=== PATIENT | male | born 1945 | race Caucasian/White ===

== ENCOUNTER 2023-01-10 10:21 | Inpatient (IN) | payer MEDICARE, OTHER, SELFPAY ==
[2023-01-04 08:37] VITALS: BMI 34.4
[2023-01-10] VITALS (14 sets, daily range): BP systolic 115–152; BP diastolic 45–75; PULSE 61–80; RESP 12–23; TEMP 35.8–36.3; O2SAT 90–97; BMI 34.4
[2023-01-10] MEDS: LACTATED RINGERS 1,000 ML 84 ML IV (11:05)
--- NOTE | 2023-01-10 12:06 | PM.PREOP ---
Pre-operative Note COVID-19 Criteria for continued procedure: Expected advancement of disease process, Possibility delay results in more complex future surgery or treatment, Increased loss of function, Continuing or worsening of significant or severe pain, Deterioration of the patient's condition or overall health and Delay expected to result in less-positive ultimate med/surg outcome Interval Note History & Physical reviewed/Exam performed by Physician: Yes Changes to H&P: No
[2023-01-10] MEDS: CEFAZOLIN 2 GM/100 ML PREMIX 100 ML IV ×2 (12:55→20:11)
--- NOTE | 2023-01-10 13:10 | SUR.OPER ---
Supine, head on gel donut. Arms padded with gel pads, tucked at sides, towel roll under shoulders. Safety belt at thigh. Legs uncrossed.
[2023-01-10] MEDS: BUPIVACAINE 0.25% (PF) 30 ML, EPINEPHrine 0.15 MG INJ (13:14)
--- NOTE | 2023-01-10 14:55 | PM.OP.1 ---
Operative Date/Time/Diagnoses Date of procedure: 01/10/23 Time of procedure: 12:00 Pre-op diagnosis: 1. C3-4, C4-5 spinal stenosis 2. 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 C3-4, C4-5 anterior cervical diskectomy and fusion 2. C3-4, C4-5 anterior interbody cage placement 3. C3-4, C4-5 anterior instrumentation with plate and screw placement in C5-C6 and C7 vertebrae 4. Utilization of microsurgical technique and operating microscope Same procedure as scheduled: Yes Indications: Patient has been having chronic neck pain and worsening cervical radiculopathy and myelopathy. Patient failed multiple conservative management with worsening pain weakness and numbness in his upper extremity. Patient has been having difficulty performing activity of daily living. After discussing risks benefits of treatment options, patient elected proceed with surgery. Surgeon: Dania Casey Emblem Drawer In: Joyce Chacko Click Yes if Unassisted: No Anesthesia Type: General Operative Notes Closure Type: primary Specimen(s): none sent Prosthetic devices, grafts, tissues, transplants, or devices: Globus Extend Plate, Hedron C cages Estimated Blood Loss (mL): 5 Blood products transfused: none Procedure in detail: Patient was seen in the preoperative area. Risks and benefits of the surgery was discussed with the patient. Operative consent was obtained and placed in the chart. Patient was then taken to the operative room. Prophylactic antibiotic was given less than 0.5 hr prior to skin incision. General anesthesia was administered. Patient was placed into a supine position on her radiolucent table. Bilateral shoulders were taped down to allow proper C-arm imaging. Anterior cervical area was prepped and draped in a sterile fashion. Time-out was performed at this time. Using lateral C-arm imaging, the level between C3 and C5 was identified and marked on patient's neck. A oblique incision from midline towards medial border of sternocleidomastoid muscle was made. The platysma muscle was incised in line with skin incision. Metzenbaum scissor was used to develop the plane between the medial border of sternocleidomastoid d and the strap muscles medially. The carotid sheath and its contents were identified and protected behind the hand-held retractor during the entire case. The plane between the carotid sheath and strap muscles was developed with Metzenbaum scissors. Dissection was made down to the level of the anterior cervical fascia. Longus colli muscle was incised on the anterior aspect of vertebral bodies bilaterally from C3-5. Spinal needle was placed into the C4-5 disc space and confirmed with lateral C-arm imaging. Using microsurgical technique and operative microscope, anterior cervical diskectomy was performed at C3-4, C4-5 level. This was done by removing the disc material, removing the anterior and posterior osteophytes posterior longitudinal ligaments along with performing bilateral foraminotomies at both levels. Patient was found to have severe central and foraminal stenosis at both levels. Patient's stenosis was fully decompressed after decompression was completed. After the diskectomy was completed, 2 anterior interbody cages were obtained. The cages were packed with DBM bone grafting material. One cage each along with the bone grafting material was then packed into the interbody spaces fromC3-4, C4-5 with one cage into each interbody level. After the cages were placed, the anterior cervical plate was stabilized to the C4-6 vertebrae using 2 screws at each each level. Total 6 screws were placed. After confirming placement of the hardware with AP and lateral C-arm imaging, the screws were locked into the plate using the locking mechanism and torque limiting screwdriver. After the hardware was placed and confirmed with AP and lateral C-arm imaging, the wound was irrigated with sterile normal saline. The platysma muscle and the subcutaneous tissue was closed with 2-0 Vicryl. The skin was closed with 4-0 Monocryl and Steri-Strips. Patient tolerated the procedure well. Patient was transferred recovery room in stable condition. There were no complications. The Operation could not have been safely performed without compromising the technical result or length of the procedure, without the assistance of a skilled director medical surgical. The director medical surgical was medically necessary for proper positioning, retraction and manipulation of instruments, proper exposure, surgical preparation, and manipulation of tissue. Complications: none Post-operative Condition: stable Disposition: PACU Plan for aftercare: Admit to inpatient hospital
--- NOTE | 2023-01-10 15:01 | DI.RAD.S_ITS ---
PROCEDURE: XR CERVICAL SPINE 2V OR 3V INDICATIONS: c3-4, c4-5 acdf TECHNIQUE: 2 low resolution fluoroscopic spot films were obtained intraoperatively COMPARISON: None. FINDINGS: Fluoroscopic intraoperative spot films show C3-4 and C4-5 anterior cervical discectomy and fusion with anterior plate and screw hardware in good position IMPRESSION: Fluoroscopic guidance Approved by: Frank Staley M.D. on 01/10/2023 at 15:03
[2023-01-10] MEDS: HYDROCODONE/ACET 5/325 TABLET 1 TAB PO (15:25)
[2023-01-10] MEDS: hydrOXYzine 50 MG/ML INJ 25 MG IM (15:25)
--- NOTE | 2023-01-10 15:30 | SUR.PHASEI ---
attempted to call report to floor
--- NOTE | 2023-01-10 16:03 | PC.NURSE ---
Assess-Patient is alert and oriented x4. He had a C3-C4 C4-C5 ACDF. Dressing to anterior cervical neck with 4x4 and tegaderm. Patient was given Vicodin, and vistaril down in PACU. He is resting now. Patient has a loud heart murmur present and he states that he has had this since he was a child. He is a diet controlled diabetic and his blood sugar down in pacu was 127. He is lying supine and denies pain at this time. Resting comfortably, he will have ivf and he is tolerating his scds.
[2023-01-10] MEDS: ACETAMINOPHEN 325 MG TABLET 650 MG PO (16:33)
[2023-01-10] MEDS: OXYCODONE IR 5 MG TABLET PO ×3 (16:34→20:11)
[2023-01-10] MEDS: LACTATED RINGERS 1,000 ML 125 ML IV (16:36)
[2023-01-10] MEDS: hydrOXYzine pamoate 25 MG CAPSULE PO (19:54)
[2023-01-10] MEDS: lisinopriL 20 MG TABLET 40 MG PO (20:09)
[2023-01-10] MEDS: ATORVASTATIN 20 MG TABLET 10 MG PO (20:10)
[2023-01-10] MEDS: EZETIMIBE 10 MG TABLET PO (20:10)
[2023-01-10] MEDS: SENNOSIDES 8.6 MG TABLET 17.2 MG PO (20:10)
[2023-01-10] MEDS: DOCUSATE 100 MG CAPSULE PO (20:11)
[2023-01-10] MEDS: BENZOCAINE/MENTHOL 1 LOZ PKT 1 EACH PO (20:24)
[2023-01-10] MEDS: HYDROMORPHONE 0.5 MG INJ IV (21:40)
[2023-01-11] MEDS: OXYCODONE IR 10 MG TABLET PO ×5 (00:11→17:09)
[2023-01-11] MEDS: LACTATED RINGERS 1,000 ML 125 ML IV ×3 (00:59→19:38)
[2023-01-11 03:37] VITALS: BP 143/79; PULSE 76; RESP 18; TEMP 35.9; O2SAT 92
[2023-01-11] MEDS: CEFAZOLIN 2 GM/100 ML PREMIX 100 ML IV (05:46)
[2023-01-11] MEDS: PANTOPRAZOLE DR 20 MG TABLET PO (05:46)
[2023-01-11] MEDS: glipiZIDE 5 MG TABLET 10 MG PO ×2 (06:43→16:44)
--- NOTE | 2023-01-11 07:33 | PM.PNPO.1 ---
Subjective Subjective Date Patient Seen: 01/11/23 Time Patient Seen: 07:33 Interval history: Patient's pain has been moderate. Denies fever or chills. No nausea or vomiting. Patient states his throat is sore but is not having difficulty swallowing or breathing. Exam Vital Signs (past 8 hours): - 01/11/23 03:37 Temperature 96.7 F L Pulse Rate 76 Respiratory Rate 18 Blood Pressure 143/79 H Pulse Oximetry 92 Oxygen Flow Rate 0 Oxygen Delivery Method Room Air Oxygen Flow Rate 0 Narrative Exam Narrative: 77-year-old male resting comfortably in bed in no apparent distress. Motor functions intact bilateral upper extremities. Sensation grossly intact to light touch bilateral upper extremities. Soft collar in place. 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) History of transurethral resection of prostate Hx of arthroscopy of right knee Hx of bilateral cataract extraction Hx of cholecystectomy S/P Botox injection Social History household members: spouse Smoking Status: Former smoker alcohol intake: current Assessment & Plan Post-op Postoperative Procedures: Procedures Operation Date: 01/10/23 12:15 Actual Procedure Side Surgeon p C3-4, C4-5 ACDF w/ anterior instrumentation Dania Casey MD Postoperative day: 1 Postoperative status: doing well and marginal pain control Postoperative status narrative: Status post cervical fusion progressing as expected Postoperative plan: routine post-op care Postoperative plan narrative: Multimodal pain management Soft collar for comfort Mobilize with physical therapy, limit bending, twisting, lifting Disposition likely this afternoon. Quality VTE Deep Vein Thrombosis/Pulmonary Embolism Present on Admission: No
[2023-01-11 08:00] VITALS: BP 132/75; PULSE 76; RESP 18; TEMP 36.8; O2SAT 92
[2023-01-11] MEDS: METOPROLOL ER 50 MG TABLET PO (08:50)
[2023-01-11] MEDS: DOCUSATE 100 MG CAPSULE PO ×2 (08:50→21:16)
[2023-01-11] MEDS: AMLODIPINE 5 MG TABLET PO (08:50)
--- NOTE | 2023-01-11 09:10 | PC.NURSE ---
Addendum entered by Tanya Coleman R.N. 01/11/23 15:15: Patient unable to void on his own. He was just in/out cathed and had 600cc of yellow urine out. He has been started on tamulosin 0.4mg daily. Addendum entered by Tanya Coleman R.N. 01/11/23 14:52: Patient is unable to void after trying to use the bathroom. We will in/out cath him and start patient on flomax 0.4mg po daily. Addendum entered by Tanya Coleman R.N. 01/11/23 11:14: Patient up with physical therapy and complained of feeling slightly dizzy. His VS are stable, his orthostatics were done and did drop a small amount. To give pain medications now and put up a new liter of ivf as patient is not drinking or eating much. Original Note: Patients incision to anterior neck is cdi with ss, 4x4s and tegaderm intact. He is able to swallow if he goes slow. Throat sounds irritated. JAIDEN Tee is aware of this. Patient complains of being dizzy this morning. Blood Pressure is wnl and po medications given. He was able to swallow these without any difficulty. Back to bed now to rest, ivf continues to infuse. If patient is unable to void in a couple of hours,we will in/out cath him and start patient on flomax per JAIDEN Dasilva.
--- NOTE | 2023-01-11 09:25 | OT.IP.EVAL ---
Current Diagnoses Other spondylosis with myelopathy, cervical region (01/10/23) Spinal stenosis, cervical region (01/10/23) Surgery Performed Operation Date: 01/10/23 12:15 Actual Procedures p C3-4, C4-5 ACDF w/ anterior instrumentation - Dania Casey MD Past Medical History (Last Reviewed 01/11/23 @ 07:34 by Trevor Dasilva PA-C) Aortic stenosis ASHD (arteriosclerotic heart disease) Diabetes Dry eyes Enlarged prostate GERD (gastroesophageal reflux disease) Hearing impaired Heart murmur History of dyspnea HLD (hyperlipidemia) HTN (hypertension) Numbness and tingling in both hands TOBI on CPAP Spinal stenosis of cervical region Surgical History (Last Reviewed 01/11/23 @ 07:34 by Trevor Dasilva PA-C) H/O vasectomy History of surgery History of surgery 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) History of transurethral resection of prostate Hx of arthroscopy of right knee Hx of bilateral cataract extraction Hx of cholecystectomy S/P Botox injection Occupational Therapy Inpatient Evaluation/Re-Eval M1 PT/OT-IP Prior Functional Status Start: 01/11/23 09:08 Freq: NEEDED Status: Active Protocol: Document 01/11/23 08:42 [facility] (Rec: 01/11/23 09:34 [facility] [id number]) Medical Review Prior Functional Status Communication independent Mobility and Gait independent Activities of Daily Living and IADL's independent Social History Household Members spouse Living Arrangements House Number of Floors (Floors) Two Floors Number of Stairs To Enter/Railing? 4 steps with right rail to enter form the garage Home Environment Standard Height Toilet,Walk in Shower Home Equipment Front Wheel Walker,Straight Cane,Shower Seat with Backrest Additional Social History Comment built in shower seat M2 OT-IP Current Condition Start: 01/11/23 09:08 Freq: Status: Active Protocol: Document 01/11/23 08:42 [facility] (Rec: 01/11/23 09:34 [facility] [id number]) Occupational Therapy Current Condition Current Condition Evaluation Date 01/11/23 Treatment Diagnosis S/P C3-4, C4-5 ACDF Diagnosis Onset Date 01/10/23 Post Operative Precautions Cervical Spine Precautions Soft Collar for Comfort,Soft Collar at all Times,No Heavy Lifting,Log Roll M3 OT- IP Subjective and Pain Start: 01/11/23 09:08 Freq: Status: Active Protocol: Document 01/11/23 08:42 [facility] (Rec: 01/11/23 09:34 [facility] [id number]) OT- Subjective Occupational Therapy Visit Type Type Initial Evaluation Visit Start Time 08:42 Visit Stop Time 09:25 Total Visit Minutes 43 Occupational Therapy Visit Comments Patient Comments Pt agreed to get up for OT eval. Patient/Caregiver Goals TO go home. OT Pain Assessment Pain When Pain Assessed At Rest Pain Present Pain Present Pain Reported Location neck Intensity 3 Scale Used Numeric (0 - 10) M4 OT- IP ADL's Start: 01/11/23 09:08 Freq: Status: Active Protocol: Document 01/11/23 08:42 [facility] (Rec: 01/11/23 09:34 [facility] [id number]) OT CQO-Uumo-Hlztffw General Evaluation Self-Feeding Ability Standby Assistance Areas Needing Assistance Opening Containers Comments OT Self-Feeding Comments Noted pt coughing a lot of liquids and needing cues to take smaller sips and try to keep his chin tucked when swallowing. Pt would benefit from OIL RIG DRILLER for further education of needs for swallowing after ACDF sx. Nursing aware of pt' s coughing and difficulty eating/swallowing at this time . OT ADL-Grooming Comments OT Grooming Comments Not performed. OT ADL-Oral Care Comments Oral Care Comments Educated best to sip into a cup to best follow his cervical precautions. OT ADL-Dressing General Eval Lower Body Dressing Ability Standby Assistance Comments OT Dressing Comments Pt able to comfortably cross his legs for LB dressing needs . Pt able to patricia/doff the soft collar on his own with cues for initial orientation of the collar direction. OT ADL-Toileting Comments OT Toileting Comments Pt not having to go. Per nursing may have to be cathed if not able to use the bathroom soon. OT ADL-Bathing Comments OT Bathing Comments NO performed. M5 OT- IP IADL's Start: 01/11/23 09:08 Freq: Status: Active Protocol: Document 01/11/23 08:42 [facility] (Rec: 01/11/23 09:34 [facility] [id number]) OT-Instrumental Activities of Daily Living Deficits IADL Deficits Identified Deficits Home Safety Awareness Awareness of Need for Assistance at Home Good Awareness Ability to Problem Solve Emergency Able to Problem Solve Situations Home Safety Comments Pt has a supportive to assist with his needs. M6 OT- IP Functional Cognition Start: 01/11/23 09:08 Freq: Status: Active Protocol: Document 01/11/23 08:42 [facility] (Rec: 01/11/23 09:34 [facility] [id number]) Cognitive Factors Limiting Selfcare Function Cognitive Ability Level of Alertness Alert Patient Orientation Name,Place,Situation Attention Span Ability Capable of Focused Attention, Capable of Sustained Attention Ability to Follow Commands Able to Follow One Step Commands Safety Awareness Decreased Ability to Apply Precautions Cognitive Comments Cognitive Assessment Comments Cues to follow log rolling for bed mobility needs. Pt able to follow commands for ADl and mobility needs. OT- Vision and Hearing OT- Hearing Assessment OT- Hearing Assessment WFL OT- Vision Assessment Visual Acuity Glasses All The Time M7 OT- IP Mobility and Balance Start: 01/11/23 09:08 Freq: Status: Active Protocol: Document 01/11/23 08:42 [facility] (Rec: 01/11/23 09:34 [facility] [id number]) OT- Bed Mobility Assessment Supine to Sit Supine to Sit Assist Contact Guard Assistance Sit to Supine Sit to Supine Assist Minimal Assistance OT-Transfer Assessment Sit to and From Stand Sit to and from Stand Contact Guard Assistance Transfers Transfer Ability Contact Guard Assistance, Minimal Assistance Technique Transfer Destination Bed,Chair Transfer Technique Stand Step Pivot Devices Transfer Assistive Devices Gait Belt,Front Wheeled Walker Comments Mobility Comments Pt feeling light headed BP supine 127/63, sitting 134/74 and standing 126/91 O2 on RA from 88-94%. Pt needing CGA to help get his trunk upright and assist for his legs back into bed with XOCHILT. Pt needing cues to stay sidelying and not to twist when getting back to bed. CGA/XOCHILT as pt a littl unsteady on his feet due to not feeling well. OT- Balance Assessment Sitting Balance and Reactions Static Sitting Balance Ability Good Dynamic Sitting Balance Ability Good Standing Balance and Reactions Static Standing Balance Ability Fair Dynamic Standing Balance Ability Fair M8 OT- IP Objective Assessments Start: 01/11/23 09:08 Freq: Status: Active Protocol: Document 01/11/23 08:42 [facility] (Rec: 01/11/23 09:34 [facility] [id number]) OT-Muscle Tone Assessment Muscle Tone WNL Yes M9 OT- IP Assessment and Plan Start: 01/11/23 09:08 Freq: Status: Active Protocol: Document 01/11/23 08:42 [facility] (Rec: 01/11/23 09:34 [facility] [id number]) OT Summary Assessment and Plan Potential Rehabilitation Potential Good Analytic Complexity at Evaluation Low Summary OT Impairments Pain,Balance,Coordination, Functional Mobility,Dressing, Toileting,Bathing,Toilet Transfers,Shower Transfers Progress Towards Goals Slow Progress due to Pain,Slow Progress due to Medical Issues,Slow Progress due to Activity Tolerance Assessment Summary Pt low complexity with main barriers being steps, having difficulty swallowing after ACDF sx, and a little unsteady on his feet and complaining of being light headed- Pt would benefit from OIL RIG DRILLER eval due to increased coughing with liquids at this time,to notify pt's nurse. Pt looking to go home with assist when medically stable. Goals Self-Feeding Goal Independent Grooming Goal Independent Dressing Goal Independent Toileting Goal Independent Bathing Goal Independent Toilet Transfer Goal Independent Shower Transfer Goal Independent Days to Meet Goals 5 Frequency of Treatment Frequency Of Treatment Once a Day Treatment Plan OT Treatment Plan ADL Training,Functional Mobility,Patient/Family Education,Discharge Planning Other Treatment Recommendations and Next LB dressing needs Treatment Focus Discharge Recommendations OT Discharge Recommendations Home with Assistance Transportation Needs at Discharge Private Vehicle
--- NOTE | 2023-01-11 10:10 | PT.IIE ---
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) History of transurethral resection of prostate Hx of arthroscopy of right knee Hx of bilateral cataract extraction Hx of cholecystectomy S/P Botox injection Medical History (Last Reviewed 01/11/23 @ 07:34 by Trevor Dasilva PA-C) Aortic stenosis ASHD (arteriosclerotic heart disease) Diabetes Dry eyes Enlarged prostate GERD (gastroesophageal reflux disease) Hearing impaired Heart murmur History of dyspnea HLD (hyperlipidemia) HTN (hypertension) Numbness and tingling in both hands TOBI on CPAP Spinal stenosis of cervical region Physical Therapy Inpatient Evaluation/Re-Eval M1 PT/OT-IP Prior Functional Status Start: 01/11/23 11:48 Freq: NEEDED Status: Active Protocol: Document 01/11/23 10:10 AB (Rec: 01/11/23 12:09 AB [id number]) Medical Review Prior Functional Status Medical History Reviewed Yes Communication able to make needs known Mobility and Gait pt stated that he is independent with all mobilities and ambulation without AD Social History Household Members spouse Living Arrangements House Number of Floors (Floors) Two Floors Number of Stairs To Enter/Railing? 4 steps with R rail ascendingto enter the house has 15 steps with R rail ascending to get to 2nd level bedroom Home Environment Standard Height Toilet,Walk in Shower,Tub/Shower Home Equipment Front Wheel Walker,Straight Cane,Shower Seat with Backrest Additional Social History Comment pt has an adjustable bed M2 PT-IP Current Condition Start: 01/11/23 11:48 Freq: NEEDED Status: Active Protocol: Document 01/11/23 10:10 AB (Rec: 01/11/23 12:09 AB [id number]) Physical Therapy Current Condition Current Condition Evaluation Date 01/11/23 Treatment Diagnosis s/p C3-4, C4-5 ACDF; difficulty in walking Onset Date 01/10/23 M3 PT-IP Subjective Start: 01/11/23 11:48 Freq: NEEDED Status: Active Protocol: Document 01/11/23 10:10 AB (Rec: 01/11/23 12:09 AB [id number]) Subjective Physical Therapy Visit Type Type Initial Evaluation Visit Start Time 10:10 Visit Stop Time 10:45 Total Visit Minutes 35 Number of HUSBANDRY TECHNICIAN Visits 0 Physical Therapy Visit Comments Patient Comments pt is agreeable to do PT Therapy Pain Assessment Pain When Pain Assessed At Rest Pain Present Pain Present Pain Reported Location neck Intensity 2 Scale Used Numeric (0 - 10) Pain Management Techniques Distraction,Modification of Treatment,Re-positioning, Timing of Activity with Medications M4 PT-IP Mobility and Gait Start: 01/11/23 11:48 Freq: NEEDED Status: Active Protocol: Document 01/11/23 10:10 AB (Rec: 01/11/23 12:09 AB [id number]) PT-Bed Mobility Assessment Rolling Type of Rolling Log Rolling Level of Assist Standby Assistance Supine to Sit Supine to Sit Standby Assistance Sit to Supine Sit to Supine Standby Assistance PT-Transfer Assessment Sit to and From Stand Sit to and from Stand Contact Guard Assistance,1 Person Assistance,Use of Upper Extremities Equipment Transfer Assistive Device Gait Belt,Front Wheeled Walker Orthotic/Prosthetic Devices or Brace: No Comments Mobility Comments pt supine in bed. BP checked: 133/55 . Reviewed cervical precautions and log roll bed mobility with pt. pt completed log roll supine to sit SBA but needs cues for techniques. c/o initial dizziness but dissipated after a few mintues of sitting. BP in sittin/59. O2 sat 87%. cued for deep breathing. O2 increased to 92% after 10 sec. pt at . completed sit to stand CGA. c/o dizziness. BP in standin/55. instructed to sit back down. BP checked: 128/61 . O2 sat 88%. cued for deep breathing and increased to 94% . completed sit to stand again and ambulated ~ 8 ft min A using FWW but with c/o dizziness and needed to sit down. BP cchecked: 130/65. O2 sat: 88-89%. completed log roll sit to supine SBA but cues provided for techniques. positiioned pt in bed. call light and table placed within reach. pt stated that he has not been able to eat or drink due to his sore throat. provided pt with ice chips. informed nurse regarding pt's dizziness, orthostatic hypotension and decrease O2 sat. Gait Assessment Gait Gait Assistance Required: Minimum Assistance,1 Person Assist Distance (Feet) 8 Able to Maintain Weight Bearing Status Yes During Gait Assistive Devices Assistive Device Gait Belt,Front Wheeled Walker Orthotic/Prosthetic Devices or Brace: No Gait Deviations General Gait Pattern Step-to Gait Factors Limiting Gait Function Factors Limiting Gait Function Decreased Activity Tolerance, Decreased Sensation,Decreased Strength,Limited Range of Motion,Pain,Poor Balance,Poor Safety Awareness,Respiratory Distress PT-Balance Assessment Sitting Balance and Reactions Static Sitting Balance Ability Good Dynamic Sitting Balance Ability Good Standing Balance and Reactions Static Standing Balance Ability Fair Dynamic Standing Balance Ability Fair Device Used FWW M5 PT-IP Objective Assessments Start: 01/11/23 11:48 Freq: NEEDED Status: Active Protocol: Document 01/11/23 10:10 AB (Rec: 01/11/23 12:09 AB [id number]) Orientation Orientation/Cognition Level of Alertness Alert Orientation Name,Place,Situation Language Function Ability No Deficits Noted Safety Awareness Decreased Safety Awareness Memory Description No Deficits Noted Gross Range of Motion Lower Extremity ROM Assessment Within Functional Limits Strength Lower Extremity Strength Assessment Within Functional Limits Sensation Assessment Sensation Gross Sensation WNL Muscle Tone Muscle Tone WNL Yes M6 PT-IP Treatment Start: 01/11/23 11:48 Freq: NEEDED Status: Active Protocol: Document 01/11/23 10:10 AB (Rec: 01/11/23 12:09 AB [id number]) Physical Therapy Treatment Education Education Provided Precautions,Weight Bearing Status,Safety M7 PT-IP Assessment and Plan Start: 01/11/23 11:48 Freq: NEEDED Status: Active Protocol: Document 01/11/23 10:10 AB (Rec: 01/11/23 12:09 AB [id number]) PT Summary Assessment and Plan Potential Rehabilitation Potential Fair Status of Condition at Evaluation Evolving Summary Impairments Pain,ROM,Strength,Balance, Coordination,Sensation,Tone, Cognition,Bed Mobility, Transfers,Gait,Activity Tolerance Assessment Summary Pt s/p C3-4, C4-5 ACDF POD1. pt requiring min A for ambulation using fWW and only able to walk ~ 8 ft at this time due to c/o dizziness and pt presenting with orthostatic hypotension from 133/55 in supine to 110/55 in standing and decrease O2 sat to 87% with actvity. will continue to assess progress and will conduct caregiver training when appropriate. pt needs to be more mobile than current level to be able to safely go home and also needs to complete stair climbing training prior to d/c. Goals Bed Mobility Goal Independent Transfer Goal Independent,Front Wheeled Walker Gait Goal Independent,Front Wheel Walker Gait Distance 200 Other Goals improve tansfers and ambulation without AD ~ 350 ft up/down 15 steps R rail ascending SBA Days to Meet Goals 5 Frequency of Treatment Frequency Of Treatment Twice a Day Treatment Plan Physical Therapy Treatment Plan Bed Mobility Training,Transfer Training,Gait Training, Therapeutic Exercise,Balance Retraining,Post Op Education, Discharge Planning,Hot or Cold Pack,Neuromuscular Re-ed, Coordination Retraining,Manual Therapy Precautions Cervical Spine Precautions Soft Collar for Comfort,No Heavy Lifting,Log Roll Recommendations To Nursing Amount of Assist Needed 1 Person Assist Discharge Recommendations PT Discharge Recommendations Home with Assistance,Home with 24/7 Assist Available,Home Health Transportation Needs at Discharge Private Vehicle
[2023-01-11 11:00] VITALS: BP 128/61; PULSE 73; O2SAT 91
--- NOTE | 2023-01-11 14:30 | PT.IPTN ---
Current Diagnoses Other spondylosis with myelopathy, cervical region (01/10/23) Spinal stenosis, cervical region (01/10/23) Surgery Performed Operation Date: 01/10/23 12:15 Actual Procedures p C3-4, C4-5 ACDF w/ anterior instrumentation - Dania Casey MD Physical Therapy Treatment Note M2 PT-IP Current Condition Start: 01/11/23 11:48 Freq: NEEDED Status: Active Protocol: Document 01/11/23 10:10 AB (Rec: 01/11/23 12:09 AB [id number]) Physical Therapy Current Condition Current Condition Evaluation Date 01/11/23 Treatment Diagnosis s/p C3-4, C4-5 ACDF; difficulty in walking Onset Date 01/10/23 M3 PT-IP Subjective Start: 01/11/23 11:48 Freq: NEEDED Status: Active Protocol: Document 01/11/23 14:53 TS (Rec: 01/11/23 15:10 TS [id number]) Subjective Physical Therapy Visit Type Type Treatment Note Visit Start Time 14:30 Visit Stop Time 14:52 Total Visit Minutes 22 Notes BP: 132/62 supine, 140/57 sitting, 129/64 standing, 138/ 59 sitting Number of FIBERGL[employer] BOAT PARTS FINISHER Visits 1 Physical Therapy Visit Comments Patient Comments pt reports pain in throat, was able to eat some applesauce, is agreeable to do PT Therapy Pain Assessment Pain When Pain Assessed At Rest Pain Present Pain Present Pain Reported M4 PT-IP Mobility and Gait Start: 01/11/23 11:48 Freq: NEEDED Status: Active Protocol: Document 01/11/23 14:53 TS (Rec: 01/11/23 15:10 TS [id number]) PT-Bed Mobility Assessment Rolling Type of Rolling Log Rolling Level of Assist Standby Assistance Supine to Sit Supine to Sit Standby Assistance Sit to Supine Sit to Supine Standby Assistance Scooting Scooting to Edge of Bed Standby Assistance PT-Transfer Assessment Sit to and From Stand Sit to and from Stand Standby Assistance,1 Person Assistance,Use of Upper Extremities Comments Mobility Comments Pt found resting in bed, agreeable to PT. BP in supine 132/62. Supine to sit SBA with HOB elevated. BP in sitting 140/57. Sit to stand with FWW SBA with UE suppor t on FWW. BP in standing 129/64, pt reported some dizziness. Pt ambulated to toilet ~10' SBA with FWW, stood ~8mins for attempt with urination, c/o increasing dizziness. He ambulated towards door ~2', c/ o increasing dizziness and requested to sit. BP in sitting 138/59. Pt was left in chair with call light nearby, RN notified. Gait Assessment Gait Gait Assistance Required: Minimum Assistance,1 Person Assist Distance (Feet) 12 Able to Maintain Weight Bearing Status Yes During Gait Assistive Devices Assistive Device Gait Belt,Front Wheeled Walker Orthotic/Prosthetic Devices or Brace: No Factors Limiting Gait Function Factors Limiting Gait Function Decreased Activity Tolerance, Decreased Sensation,Decreased Strength,Limited Range of Motion,Pain,Poor Balance,Poor Safety Awareness,Respiratory Distress Comments Gait Comments See mobility comments. PT-Balance Assessment Sitting Balance and Reactions Static Sitting Balance Ability Good Dynamic Sitting Balance Ability Good Standing Balance and Reactions Static Standing Balance Ability Fair Dynamic Standing Balance Ability Fair Device Used FWW M5 PT-IP Objective Assessments Start: 01/11/23 11:48 Freq: NEEDED Status: Active Protocol: Document 01/11/23 10:10 AB (Rec: 01/11/23 12:09 AB [id number]) Orientation Orientation/Cognition Level of Alertness Alert Orientation Name,Place,Situation Language Function Ability No Deficits Noted Safety Awareness Decreased Safety Awareness Memory Description No Deficits Noted Gross Range of Motion Lower Extremity ROM Assessment Within Functional Limits Strength Lower Extremity Strength Assessment Within Functional Limits Sensation Assessment Sensation Gross Sensation WNL Muscle Tone Muscle Tone WNL Yes M6 PT-IP Treatment Start: 01/11/23 11:48 Freq: NEEDED Status: Active Protocol: Document 01/11/23 14:53 TS (Rec: 01/11/23 15:10 [id number]) Physical Therapy Treatment Education Education Provided Precautions,Weight Bearing Status,Safety M7 PT-IP Assessment and Plan Start: 01/11/23 11:48 Freq: NEEDED Status: Active Protocol: Document 01/11/23 14:53 TS (Rec: 01/11/23 15:10 TS [id number]) PT Summary Assessment and Plan Potential Rehabilitation Potential Fair Summary Impairments Pain,ROM,Strength,Balance, Coordination,Sensation,Tone, Cognition,Bed Mobility, Transfers,Gait,Activity Tolerance Progress Towards Goals Slow Progress due to Medical Issues Assessment Summary Pt performs all bed mobility and sit to stands SBA. He progressed his gait slighlty this session with ambulation to the toilet. Biggest factor limiting Ruy in progressing his mobility further is due to his c/o of increasing dizziness in standing making him a falls risk. PT is recommending return home with assist and outpatient PT. When is safe to do so pt will need to perform stairs x15 before d/c. Goals Bed Mobility Goal Independent Transfer Goal Independent,Front Wheeled Walker Gait Goal Independent,Front Wheel Walker Gait Distance 200 Other Goals improve tansfers and ambulation without AD ~ 350 ft up/down 15 steps R rail ascending SBA Days to Meet Goals 5 Frequency of Treatment Frequency Of Treatment Twice a Day Treatment Plan Physical Therapy Treatment Plan Bed Mobility Training,Transfer Training,Gait Training, Therapeutic Exercise,Balance Retraining,Post Op Education, Discharge Planning,Hot or Cold Pack,Neuromuscular Re-ed, Coordination Retraining,Manual Therapy Precautions Cervical Spine Precautions Soft Collar for Comfort,No Heavy Lifting,Log Roll Recommendations To Nursing Amount of Assist Needed 1 Person Assist Discharge Recommendations PT Discharge Recommendations Home with Assistance,Home with 24/7 Assist Available,Home Health Transportation Needs at Discharge Private Vehicle
--- NOTE | 2023-01-11 14:54 | CM.DANOTE ---
DCP: Chart review for case, met with patient at bedside, they agree to case management assessment. Completed DCP assessment based on information available. Patient is 77 year old here for planned cervical ACDF. He states he is usually independent for ADL?s, drives. Mckenna is here and supportive. She will be intermodal truck driver home. CONE CLEANER consulted for difficulty swallowing. PCP: Melvi Iniguez Payer: Medicare CC: As above DCP: Home with Mckenna. P: Mobility, precaution teaching with therapies, CONE CLEANER, steroids Sarah Perrin RN, CM Discharge Planning/Care Management CM Discharge Assessment Start: 01/11/23 14:49 Freq: Status: Active Protocol: Document 01/11/23 14:49 BQ (Rec: 01/11/23 14:51 BQ [id number]) Discharge Planning Assessment Assigned Pond Tender Sarah Perrin RN, CM Advance Directives? No History Provided By Patient,Medical Record Has Patient been admitted in last 30 No days? Prior Living Arrangements House Household Members spouse Type of transporation used prior to Drives own vehicle admit Independent with ADL's Yes Is patient alert and oriented? Yes Caregiver for Another No DME Already Rented / Owned Cane Barriers to Discharge Yes Comment CONE CLEANER for difficulty swallowing. Discharge Plan Home Referrals Initiated None needed Medicare Choice List Provided No Whiteboard Updated in Patient Room with Yes name and ext. # of Pond Tender Review Status In Process Next Review Type Continued Stay Review Pre-Anesthesia Assessment Start: 01/04/23 08:37 Freq: Status: Complete Protocol: Document 01/04/23 08:37 CAB (Rec: 01/04/23 09:38 CAB [id number]) Pre-Anesthesia Assessment Preferred Name [facility] Patient Information Reviewed Via Phone Assessment Assessment Completed With Patient Diagnostic Results BMP/CMP,CBC,EKG Comment Outside labs/ekg scanned Primary Care Provider Melvi Solis Seen Specialist in Last 12 Months Yes Specialist Seen Grants Specialist,Orthopedist, Welding Machine Operator Helper Gas Comment Pulmonary visit 10/29/22 scanned Primary Language Hebrew Foiling Machine Adjuster Required No Height 173.99 cm Weight 104.326 kg Body Mass Index (BMI) 34.4 Hearing Ability Hearing Impaired,Use of Hearing Aid Visual Assist Glasses Barriers to Learning None Hx Anesthesia Reactions No Hx Family Anesthesia Reaction No Hx Malignant Hyperthermia No Hx Blood Transfusions No Anesthesia Review Requested No Pbx Operator No alcohol intake current alcohol intake frequency a few times a week Smoking Status Former smoker how long ago did patient quit smoking Quit > 45 years ago Substance Use Type does not use Pain Present Pain Reported Musculoskeletal Symptoms Limited Range of Motion,Neck Pain,Numbness,Radiating Pain into Limb History of Falling (Recent or History of Yes ) Patient is completely paralyzed or No completely immobile Gait/Transferring Normal/bedrest/immobile Mental Status Oriented to own ability Comment Balance issues Is patient on oxygen? No Does patient have CARTAGENA/SOB Yes Hx Sleep Apnea Yes CPAP/BIPAP use prescribed and used routinely Will Bring CPAP/BIPAP DOS Yes Currently Taking a Beta Cesar Yes: Metoprolol Can You Climb a Flight of Stairs Without No SOB Hx Chest Pain Yes: Resolved w/Metoprolol Hx SOB Yes Hx Syncope or Dizziness Yes: Resolved w/Metoprolol Anti-Coagulant Therapy Yes: ASA 81mg-advised to hold7 days per Carmela Has a Grants Specialist Yes: Visit 09/30/22 scanned [address] name Dr. Posada @ [facility] Cardiac Testing No Hx Pacemaker/ICD No Pacemaker Rep Required? No Comment Cardiac records scanned Diet Type At Home Regular Dysphagia No Gastrointestinal Symptoms Reflux Chronic UTI No Urinary Catheter Present No Hx Urinary Self Catheterization No Diabetes Yes HgbA1C 6.6 Date 12/21/22 Presence of External or Internal Medical Yes: Bilat eye IOLs, left hip, Devices CPAP, left hearing aid Received a COVID vaccine? Yes Received all doses? Yes Marital Status Lives With spouse Current Living Arrangements House Number of Floors (Floors) Two Floors Number of Stairs To Enter/Railing? 4 Support System Spouse Patient Discharge Plan Description Return Home Comment Pt advised overnight length of stay per surgeon Feels Safe in Current Environment Yes Been Physically Hurt or Threatened By a No Person in Current Environment Do you have thoughts of harming yourself None or others? Are you currently considering suicide? No Do you have a plan to hurt yourself or No Plan others? Do You Have Any Spiritual Beliefs That No May Affect Your HC Choices? Do You Have Any Cultural Practices That No May Affect Your HC Choices? Comment Congregational Who Can We Speak to About Patient's Care family, friends Identifying Code for Release of Patient Declines to issue Information Health Care Proxy/Next of Kin Mckenna () Health Care Proxy Emergency Contact Name Mckenna () Emergency Contact Advance Directives? No Power of Certified Personal Finance Counselor No PAC Instructions Bring CPAP/BIPAP,Diabetes instructions,Durable medical equipment,Medications to take/ avoid,Nasal antibiotic,No ETOH /petroleum product on skin DOS ,NPO,Pre-surgical wash,Sensory aids,Sturdy shoes/comfortable clothes,Do not bring valuables and remove jewelry
[2023-01-11 15:00] VITALS: BP 138/59; PULSE 73
[2023-01-11] MEDS: TAMSULOSIN 0.4 MG CAPSULE PO (15:29)
[2023-01-11 20:05] VITALS: BP 115/51; PULSE 69; RESP 18; TEMP 37.2; O2SAT 91
[2023-01-11 21:16] VITALS: BP 115/51; PULSE 69
[2023-01-11] MEDS: SENNOSIDES 8.6 MG TABLET 17.2 MG PO (21:16)
[2023-01-11] MEDS: ATORVASTATIN 20 MG TABLET 10 MG PO (21:16)
[2023-01-11] MEDS: BENZOCAINE/MENTHOL 1 LOZ PKT 1 EACH PO (21:16)
[2023-01-11] MEDS: ACETAMINOPHEN 325 MG TABLET 650 MG PO (21:16)
[2023-01-11] MEDS: EZETIMIBE 10 MG TABLET PO (21:18)
[2023-01-12 00:15] VITALS: BP 137/67; PULSE 70; RESP 20; TEMP 36.8; O2SAT 92
[2023-01-12] MEDS: OXYCODONE IR 5 MG TABLET PO (01:47)
[2023-01-12] MEDS: LIDOCAINE 2% (GLYDO) 6 ML GEL TOP (03:02)
--- NOTE | 2023-01-12 03:23 | PC.NURSE ---
Addendum entered by Sachi Tirado R.N. 01/12/23 06:36: Cashier Gambling Pt has been having difficulty swallowing oral pills. Pt stated that this is a new onset since surgery. Pt denies shortness of breath or difficulty with swallowing fluids or applesauce/ pudding. LR iv fluids continued. Original Note: Cashier Gambling bladder scanned Pt, over 650mL found, Called Dr Casey to get order for indwelling cath to be placed, along with Lidocaine gel to be used for Pt comfort. Dr Casey agreed via telephone order. Pt tolerated insertion well, and 1000mL out put was collected.
[2023-01-12] MEDS: LACTATED RINGERS 1,000 ML 125 ML IV (03:30)
[2023-01-12 04:15] VITALS: BP 124/55; PULSE 73; RESP 20; TEMP 36.8; O2SAT 93
[2023-01-12] MEDS: PANTOPRAZOLE DR 20 MG TABLET PO (06:32)
--- NOTE | 2023-01-12 07:35 | P.DS_ITS ---
History of Present Illness History of Present Illness Date Patient Seen: 01/12/23 Time Patient Seen: 07:35 Chief complaint: Cervical ACDF Discharge Providers Provider Date of admission: 01/10/23 10:21 Discharge Date: 01/12/23 Primary care physician: LANIE Le Consults: 01/10/23 15:42 Consult to Occupational Therapy Evaluate & Treat Comment: Physician Instructions: Evaluate and treat Consult to Physical Therapy Evaluate & Treat Comment: Physician Instructions: Evaluate and Treat 01/11/23 10:39 Consult to Speech Therapy Evaluate & Treat Comment: Physician Instructions: Evaluate and treat Discharge provider: Mae Garcia PA-C Exam Vital Signs (past 8 hours): - 01/12/23 00:15 01/12/23 04:15 Temperature 98.3 F 98.2 F Pulse Rate 70 73 Respiratory Rate 20 20 Blood Pressure 137/67 124/55 L Pulse Oximetry 92 93 Oxygen Flow Rate 0 0 Oxygen Delivery Method Room Air Oxygen Flow Rate 0 PFSH Medical History Aortic stenosis ASHD (arteriosclerotic heart disease) Diabetes Dry eyes Enlarged prostate GERD (gastroesophageal reflux disease) Hearing impaired Heart murmur History of dyspnea HLD (hyperlipidemia) HTN (hypertension) Numbness and tingling in both hands TOBI on CPAP Spinal stenosis of cervical region Surgical History H/O vasectomy History of surgery History of surgery 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) History of transurethral resection of prostate Hx of arthroscopy of right knee Hx of bilateral cataract extraction Hx of cholecystectomy S/P Botox injection Social History household members: spouse Smoking Status: Former smoker alcohol intake: current Discharge Plan Discharge Plan Patient Disposition: Home Discharge orders & Medications Prescriptions: New oxycodone 5 mg Tablet 5 mg PO Q3H PRN (Reason: Pain, Moderate (4-6)) Qty: 60 0RF docusate sodium 100 mg Capsule 100 mg PO BID PRN (Reason: constipation) Qty: 60 1RF hydroxyzine pamoate 25 mg Capsule 25 mg PO Q4HR PRN (Reason: muscle spasm) Qty: 60 0RF Cepacol Sore Throat (janet-men) 15-3.6 mg Lozenge 1 guilherme PO Q1HR PRN (Reason: Sore Throat) Qty: 16 2RF tamsulosin [Flomax] 0.4 mg Capsule 0.4 mg PO DAILY Qty: 30 0RF acetaminophen 325 mg Tablet 650 mg PO Q6H PRN (Reason: Fever/Mild Pain (1-3)) Qty: 240 0RF Continued pioglitazone 15 mg Tablet 15 mg PO DAILY metoprolol succinate 50 mg Tablet Extended Release 24 Hr 50 mg PO DAILY glipizide 10 mg Tablet 10 mg PO BID amlodipine 5 mg Tablet 5 mg PO DAILY aspirin [Aspir-81] 81 mg Tablet,Delayed Release (Dr/Ec) 81 mg PO BEDTIME lisinopril 40 mg Tablet 40 mg PO BEDTIME esomeprazole magnesium 20 mg Capsule,Delayed Release(Dr/Ec) 20 mg PO DAILY ezetimibe 10 mg Tablet 10 mg PO BEDTIME rosuvastatin 5 mg Tablet 5 mg PO BEDTIME Follow up/Referrals: Dania Casey MD [Physician] - As previously scheduled (Follow up w/ ARGENTINA Tee, on 01/26/2023 @ 9:50 am at [facility] in [place].) Melvi Solis ARNP [Primary Care Provider] - Diet/Activity/Treatments Diet: Diet as Tolerated Diet comment: Soft, room temperature foods and liquids. Activity: Soft collar as needed for comfort. May have it off to eat and shower. Some people feel more comfortable sleeping with it on, but you don't have to. Cold/Heat Therapy: Heating pad to back of neck/between shoulder blades as needed. Skin/Wound/Dressing Care Report to your healthcare provider any signs of infection, such as:: chills, fever, night sweats, unusual drainage and unusual redness Dressing: May shower. If dressing becomes wet inside, may remove and replace with clean, dry gauze. Leave steri strips in place until follow up in office. Visit Report/Discharge Packet Instructions: DI for Anterior Cervical Discectomy and Fusion, DI for Prescription Opioid Use Stand Alone Forms: Patient Portal/API, Stroke Signs & Symptoms, Surgery Discharge Discharge Data Primary Care Provider: Melvi Solis Quality VTE Deep Vein Thrombosis/Pulmonary Embolism Present on Admission: No
[2023-01-12 08:00] VITALS: BP 115/52; PULSE 77; RESP 18; TEMP 37.2; O2SAT 95
--- NOTE | 2023-01-12 08:13 | PT.IPTN ---
Current Diagnoses Other spondylosis with myelopathy, cervical region (01/10/23) Spinal stenosis, cervical region (01/10/23) Arthrodesis status (01/10/23) Surgery Performed Operation Date: 01/10/23 12:15 Actual Procedures p C3-4, C4-5 ACDF w/ anterior instrumentation - Dania Casey MD Physical Therapy Treatment Note M2 PT-IP Current Condition Start: 01/11/23 11:48 Freq: NEEDED Status: Active Protocol: Document 01/11/23 10:10 AB (Rec: 01/11/23 12:09 AB [id number]) Physical Therapy Current Condition Current Condition Evaluation Date 01/11/23 Treatment Diagnosis s/p C3-4, C4-5 ACDF; difficulty in walking Onset Date 01/10/23 M3 PT-IP Subjective Start: 01/11/23 11:48 Freq: NEEDED Status: Active Protocol: Document 01/12/23 08:50 TS (Rec: 01/12/23 09:12 TS [id number]) Subjective Physical Therapy Visit Type Type Treatment Note Visit Start Time 08:13 Visit Stop Time 08:45 Total Visit Minutes 32 Notes BP: 134/56supine, 145/53 sitting, 125/59 standing, 148/ 56 standing after mobility. Number of PAINTER SPRAY Visits 2 Physical Therapy Visit Comments Patient Comments Pt found resting in bed, agreeable to PT. M4 PT-IP Mobility and Gait Start: 01/11/23 11:48 Freq: NEEDED Status: Active Protocol: Document 01/12/23 08:50 TS (Rec: 01/12/23 09:12 TS [id number]) PT-Bed Mobility Assessment Supine to Sit Supine to Sit Standby Assistance Scooting Scooting to Edge of Bed Standby Assistance PT-Transfer Assessment Sit to and From Stand Sit to and from Stand Standby Assistance,Use of Upper Extremities Equipment Transfer Assistive Device Gait Belt,Front Wheeled Walker Orthotic/Prosthetic Devices or Brace: No Comments Mobility Comments Pt found on 1L of o2 Spo2 93%, on RA 93%. BP taken in supine prior to mobility 134/56. Supine to sit SBA with BUE support and HOB elevated. He sat EOB with no UE support, BP taken 145/53. Sit to stand with FWW SBA, demonstrates good upright posture in standing with no retrolenaing, BP 125/59. Pt ambulated to ~ 200' SBA with step thru gait, initial 5' pt reported some dizziness but was tolerable. He performed stairs x12 SBA with single rail support on R side step over step, had some increased in dizziness when descending steps. Pt ambulated back to room, BP taken in standing 148/56, denies dizziness. Pt was left in bedside chair with call light nearby, Spo2 93% on RA, RN notified. Gait Assessment Gait Gait Assistance Required: Standby Assistance Distance (Feet) 200 Able to Maintain Weight Bearing Status Yes During Gait Assistive Devices Assistive Device Gait Belt,Front Wheeled Walker Orthotic/Prosthetic Devices or Brace: No Factors Limiting Gait Function Factors Limiting Gait Function Limited Range of Motion, Respiratory Distress Comments Gait Comments See mobility comments. Stair Climbing Assessment Evaluation Level of Assist On Stairs Standby Assistance Devices Stair Climbing Assistive Devices Right Railing Technique/Endurance Stair Climbing Direction Ascend and Descend Stair Climbing Technique Step Over Step Number of Steps Climbed 12 PT-Balance Assessment Sitting Balance and Reactions Static Sitting Balance Ability Good Dynamic Sitting Balance Ability Good Standing Balance and Reactions Static Standing Balance Ability Good Dynamic Standing Balance Ability Good Device Used FWW M5 PT-IP Objective Assessments Start: 01/11/23 11:48 Freq: NEEDED Status: Active Protocol: Document 01/11/23 10:10 AB (Rec: 01/11/23 12:09 AB [id number]) Orientation Orientation/Cognition Level of Alertness Alert Orientation Name,Place,Situation Language Function Ability No Deficits Noted Safety Awareness Decreased Safety Awareness Memory Description No Deficits Noted Gross Range of Motion Lower Extremity ROM Assessment Within Functional Limits Strength Lower Extremity Strength Assessment Within Functional Limits Sensation Assessment Sensation Gross Sensation WNL Muscle Tone Muscle Tone WNL Yes M6 PT-IP Treatment Start: 01/11/23 11:48 Freq: NEEDED Status: Active Protocol: Document 01/12/23 08:50 TS (Rec: 01/12/23 09:12 TS [id number]) Physical Therapy Treatment Education Education Provided Precautions,Weight Bearing Status,Safety M7 PT-IP Assessment and Plan Start: 01/11/23 11:48 Freq: NEEDED Status: Active Protocol: Document 01/12/23 08:50 TS (Rec: 01/12/23 09:12 TS [id number]) PT Summary Assessment and Plan Potential Rehabilitation Potential Good Summary Impairments Pain,ROM,Strength,Balance, Coordination,Sensation,Tone, Cognition,Bed Mobility, Transfers,Gait,Activity Tolerance Progress Towards Goals Progressing Toward Goals Assessment Summary Pt is making progress with his mobility this morning. He continues to have some dizziness initially in standing and when descending steps but seems to come and go , see vital signs above. Pt is SBA for all mobility and does not require cues. He progressed his gait to ~200 in with FWW, has no buckling or LOB. He performed 12 stairs SBA with single handrail use on R side, again no LOB. PT is recommending return home with assist from spouse. Goals Bed Mobility Goal Independent Transfer Goal Independent,Front Wheeled Walker Gait Goal Independent,Front Wheel Walker Gait Distance 200 Other Goals improve tansfers and ambulation without AD ~ 350 ft up/down 15 steps R rail ascending SBA Days to Meet Goals 5 Frequency of Treatment Frequency Of Treatment Twice a Day Treatment Plan Physical Therapy Treatment Plan Bed Mobility Training,Transfer Training,Gait Training, Therapeutic Exercise,Balance Retraining,Post Op Education, Discharge Planning,Hot or Cold Pack,Neuromuscular Re-ed, Coordination Retraining,Manual Therapy Precautions Cervical Spine Precautions Soft Collar for Comfort,No Heavy Lifting,Log Roll Recommendations To Nursing Amount of Assist Needed Standby Assistance Discharge Recommendations PT Discharge Recommendations Home with Assistance Transportation Needs at Discharge Private Vehicle
[2023-01-12 08:52] VITALS: BP 115/52; PULSE 77
[2023-01-12] MEDS: polyethylene glycoL 3350 17 GM POWD.PACK PO (08:52)
[2023-01-12] MEDS: TAMSULOSIN 0.4 MG CAPSULE PO (08:52)
[2023-01-12] MEDS: METOPROLOL ER 50 MG TABLET PO (08:52)
[2023-01-12] MEDS: AMLODIPINE 5 MG TABLET PO (08:52)
[2023-01-12] MEDS: DOCUSATE 100 MG CAPSULE PO (08:53)
[2023-01-12] MEDS: glipiZIDE 5 MG TABLET 10 MG PO (08:55)
--- NOTE | 2023-01-12 09:08 | OT.IP.TRT ---
Current Diagnoses Other spondylosis with myelopathy, cervical region (01/10/23) Spinal stenosis, cervical region (01/10/23) Arthrodesis status (01/10/23) Surgery Performed Operation Date: 01/10/23 12:15 Actual Procedures p C3-4, C4-5 ACDF w/ anterior instrumentation - Dania Casey MD Occupational Therapy Treatment Note M2 OT-IP Current Condition Start: 01/11/23 09:08 Freq: Status: Active Protocol: Document 01/11/23 08:42 [facility] (Rec: 01/11/23 09:34 [facility] [id number]) Occupational Therapy Current Condition Current Condition Evaluation Date 01/11/23 Treatment Diagnosis S/P C3-4, C4-5 ACDF Diagnosis Onset Date 01/10/23 Post Operative Precautions Cervical Spine Precautions Soft Collar for Comfort,Soft Collar at all Times,No Heavy Lifting,Log Roll M3 OT- IP Subjective and Pain Start: 01/11/23 09:08 Freq: Status: Active Protocol: Document 01/12/23 09:00 [facility] (Rec: 01/12/23 10:37 [facility] [id number]) OT- Subjective Occupational Therapy Visit Type Type Treatment Note Visit Start Time 09:00 Visit Stop Time 09:08 Total Visit Minutes 8 Occupational Therapy Visit Comments Patient Comments Pt eating breakfast and second time pt states has no further OT needs. Pt wanting to shower at home and get dressed later. Patient/Caregiver Goals To go home. OT Pain Assessment Pain When Pain Assessed At Rest Pain Present Pain Present Denied Pain M4 OT- IP ADL's Start: 01/11/23 09:08 Freq: Status: Active Protocol: Document 01/12/23 09:00 [facility] (Rec: 01/12/23 10:37 [facility] [id number]) OT [id number] Comments OT Self-Feeding Comments Pt doing much better with swallowing today and noted a lot less coughing. Pt also remembering to keep his chin tucked while eating. Reminded pt to eat upright and able to place multiple pillows behind him to better positioning while eating. M5 OT- IP IADL's Start: 01/11/23 09:08 Freq: Status: Active Protocol: Document 01/11/23 08:42 [facility] (Rec: 01/11/23 09:34 [facility] [id number]) OT-Instrumental Activities of Daily Living Deficits IADL Deficits Identified Deficits Home Safety Awareness Awareness of Need for Assistance at Home Good Awareness Ability to Problem Solve Emergency Able to Problem Solve Situations Home Safety Comments Pt has a supportive to assist with his needs. M6 OT- IP Functional Cognition Start: 01/11/23 09:08 Freq: Status: Active Protocol: Document 01/12/23 09:00 [facility] (Rec: 01/12/23 10:37 [facility] [id number]) Cognitive Factors Limiting Selfcare Function Cognitive Comments Cognitive Assessment Comments Intact M8 OT- IP Objective Assessments Start: 01/11/23 09:08 Freq: Status: Active Protocol: Document 01/11/23 08:42 [facility] (Rec: 01/11/23 09:34 [facility] [id number]) OT-Muscle Tone Assessment Muscle Tone WNL Yes M9 OT- IP Assessment and Plan Start: 01/11/23 09:08 Freq: Status: Active Protocol: Document 01/12/23 09:00 [facility] (Rec: 01/12/23 10:37 [facility] [id number]) OT Summary Assessment and Plan Potential Rehabilitation Potential Good Analytic Complexity at Evaluation Low Summary Progress Towards Goals Progressing Toward Goals Assessment Summary Pt doing better with swallowing and able to follow strategies to eat upright , chew food thoroughly, tuck his chin while swallowing, and go slowly. Pt to go home today with assist. Goals Dressing Goal Independent Toileting Goal Independent Bathing Goal Independent Toilet Transfer Goal Independent Shower Transfer Goal Independent Days to Meet Goals 2 Frequency of Treatment Frequency Of Treatment Once a Day Treatment Plan OT Treatment Plan ADL Training,Functional Mobility,Patient/Family Education,Discharge Planning Discharge Recommendations OT Discharge Recommendations Home with Assistance Transportation Needs at Discharge Private Vehicle
[2023-01-12 11:59] VITALS: BP 140/59; PULSE 60; RESP 16; TEMP 37.3; O2SAT 94
== END 2023-01-12 13:06 | disposition home or self-care (01) | DRG 472 ==
PROVIDERS: Admitting Provider Orthopaedic Surgery Orthopaedic Surgery of the Spine; Family Provider Family Medicine; PCP Nurse Practitioner Family; Referring Provider Orthopaedic Surgery Orthopaedic Surgery of the Spine; Visit Provider Orthopaedic Surgery Orthopaedic Surgery of the Spine
PROC: 0RG20A0 Fusion of 2 or more Cervical Vertebral Joints with Interbody Fusion Device, Anterior Approach, Anterior Column, Open Approach (ICD-10-PCS; principal; 2023-01-10 12:15)
DX: M48.02 Spinal stenosis, cervical region (principal); M47.12 Other spondylosis with myelopathy, cervical region; R42 Dizziness and giddiness; R39.198 Other difficulties with micturition; E11.9 Type 2 diabetes mellitus without complications; I10 Essential (primary) hypertension; E78.5 Hyperlipidemia, unspecified; K21.9 Gastro-esophageal reflux disease without esophagitis; Z79.84 Long term (current) use of oral hypoglycemic drugs; Z20.822 Contact with and (suspected) exposure to COVID-19; Z87.891 Personal history of nicotine dependence
CPT/HCPCS: 72040; 76000; 82962; 92610; 97116; 97162; 97165; 97530; 97535; C1713; J0171; J0690; J1170; J3010; J3410